=== PATIENT | male | born 1940 | race Caucasian/White ===

== ENCOUNTER 2019-04-07 19:03 | Emergency (ER) | payer OTHER ==
--- OUTSIDE RECORDS SUMMARY | 2019-04-07 19:05 | XMS REPORT | Summary of Care ---
:1940 Author Organization [facility] Address [address] [place] [address] Care Team Providers Name Role Phone Ashley Barraza MD Primary Care Provider Reason for Visit Reason Comments Refill Request Encounter Details Date Type Department Care Team Description 12/20/2018 Refill [facility] Pediatric and Armando Nogueira III, MD Refill Request Adult Primary Care- [address] [place] [address] Dr. Judd [address] , [place] [address] [facility] [phone] [place] [address] [phone] Allergies No Known Allergiesdocumented as of this encounter (statuses as of 12/22/2018) Medications Medication Sig Dispensed Refills Start Date End Date Status Pantoprazole 40 mg Take 40 mg by 90 Each 3 02/25/2018 Active delayed-release mouth daily. suspensionIndicati ons: Bipolar 1 disorder, depressed, moderate, Type 2 diabetes mellitus without complication, without long-term current use of insulin atorvastatin 40 mg Take 1 tablet 90 tablet 3 05/07/2018 Active tabletIndications: by mouth at Type 2 diabetes bedtime. mellitus without complication, without long-term current use of insulin PROPRANOLOL 20 mg TAKE 1 TABLET 180 tablet 3 09/21/2018 Active tabletIndications: TWICE DAILY Bipolar 1 disorder, depressed, moderate VENLAFAXINE XR 150 TAKE 1 CAPSULE 90 capsule 3 09/21/2018 Active mg 24 hr EVERY DAY WITH capsuleIndications BREAKFAST : Bipolar 1 disorder, depressed, moderate VENLAFAXINE XR TAKE 1 CAPSULE 90 capsule 3 09/21/2018 Active 37.5 mg 24 hr EVERY DAY WITH capsuleIndications BREAKFAST : Bipolar 1 disorder, depressed, moderate lancets-blood 1 Each 2 (two) 180 Each 3 09/30/2018 Active glucose strips 30 times daily. DX gauge Cmpk E11.9 (Brand upon insurance approval) QUETIAPINE 100 mg TAKE 1 TABLET 90 tablet 3 12/22/2018 Active tabletIndications: EVERY DAY AT Bipolar 1 BEDTIME disorder, depressed, moderate METFORMIN ER 500 TAKE 2 TABLETS 360 tablet 1 12/20/2018 Active mg 24 hr IN THE MORNING tabletIndications: AND TAKE 2 Type 2 diabetes TABLETS IN THE mellitus without EVENING complication, without long-term current use of insulin Lancing Device Check blood 1 Kit 0 12/20/2018 Active with Lancets sugar BID. (ACCU-CHEK SOFT E11.9 DEV LANCETS) KitIndications: Type 2 diabetes mellitus without complication, without long-term current use of insulin GLIMEPIRIDE 4 mg TAKE 1 TABLET 180 tablet 3 12/22/2018 Active tabletIndications: TWICE DAILY Type 2 diabetes mellitus without complication, without long-term current use of insulin CLONAZEPAM 0.5 mg TAKE 1 TABLET 60 tablet 2 12/22/2018 Active tabletIndications: TWICE DAILY Bipolar 1 disorder, depressed, moderate LISINOPRIL 10 mg TAKE 1 TABLET 90 tablet 3 12/22/2018 Active tabletIndications: EVERY DAY Type 2 diabetes mellitus without complication, without long-term current use of insulin QUEtiapine 100 mg Take 1 tablet 90 tablet 3 01/15/2018 Discontinued tabletIndications: by mouth daily. 9 Bipolar 1 At hs disorder, depressed, moderate glimepiride 4 mg Take 1 tablet 180 tablet 3 03/03/2018 Discontinued tabletIndications: by mouth 2 9 Type 2 diabetes (two) times mellitus without daily. complication, without long-term current use of insulin lisinopril 10 mg Take 1 tablet 90 tablet 3 05/07/2018 Discontinued tabletIndications: by mouth daily. 9 Type 2 diabetes mellitus without complication, without long-term current use of insulin CLONAZEPAM 0.5 mg TAKE 1 TABLET 60 tablet 2 10/08/2018 Discontinued tabletIndications: TWICE DAILY 9 Bipolar 1 disorder, depressed, moderate documented as of this encounter (statuses as of 12/22/2018) Active Problems Problem Noted Date Bipolar 1 disorder, depressed, moderate 01/15/2018 Type 2 diabetes mellitus without complication, without long-term current 01/15 use of insulin documented as of this encounter (statuses as of 12/22/2018) Immunizations Name Administration Dates Next Due Influenza High Dose 02/03/2018 documented as of this encounter Social History Tobacco Use Types Packs/Day Years Used Date Never Smoker Smokeless Tobacco: Never Used Alcohol Use Drinks/Week oz/Week Comments No Sex Assigned at Date Recorded Not on file Job Start Date Occupation Industry Not on file Not on file Not on file Travel History Travel Start Travel End No recent travel history available. documented as of this encounter Last Filed Vital Signs Not on filedocumented in this encounter Plan of Treatment Health Maintenance Due Date Last Done Comments HgA1C 1943 CREATININE (SERUM) 02/01/1952 EYE EXAM 02/01/1952 LDL-C 02/01/1952 URINE MICROALBUMIN 02/01/1952 FOOT EXAM 02/01/1960 DTaP,Tdap,and Td Vaccines (1 - 1961 Tdap) Zoster Recombinant Vaccine 02/01/1992 (SHINGRIX) (1 of 2) Medicare Wellness Visit 2007 PNEUMOCOCCAL VACCINES 65+ (1 of 2 2007 - PCV13) INFLUENZA VACCINE (#1) 2018 02/03/2018, 01/24/2014, 01/12/2013, Additional history exists documented as of this encounter Results Not on filedocumented in this encounter Visit Diagnoses Diagnosis Bipolar 1 disorder, depressed, moderate Bipolar I disorder, most recent episode (or current) depressed, moderate Type 2 diabetes mellitus without complication, without long-term current use of insulin documented in this encounter Insurance Payer Benefit Plan / Subscriber ID Effective Dates Phone Address Type Group HUMANA - HUMANA [id number] 2017-Presen Medicare Adv MANAGED MEDICARE t FFS MEDICARE documented as of this encounter
--- OUTSIDE RECORDS SUMMARY | 2019-04-07 19:05 | XMS REPORT | Summary of Care ---
:1940 Author Organization [facility] Address [address] [place] [id number] Care Team Providers Name Role Phone Ashley Barraza MD Primary Care Provider Reason for Visit Reason Comments Refill Request Encounter Details Date Type Department Care Team Description 12/20/2018 Refill [facility] Pediatric and Ashley Barraza, Refill Request Adult Primary Care- MD Judd [address] [place] [address], [address] [place] [address] [place] [phone] Allergies No Known Allergiesdocumented as of this encounter (statuses as of 12/20/2018) Medications Medication Sig Dispensed Refills Start Date End Date Status QUEtiapine 100 mg Take 1 tablet 90 tablet 3 01/15/2018 Active tabletIndications: by mouth daily. Bipolar 1 At hs disorder, depressed, moderate Pantoprazole 40 mg Take 40 mg by 90 Each 3 02/25/2018 Active delayed-release mouth daily. suspensionIndicati ons: Bipolar 1 disorder, depressed, moderate, Type 2 diabetes mellitus without complication, without long-term current use of insulin glimepiride 4 mg Take 1 tablet 180 tablet 3 03/03/2018 Active tabletIndications: by mouth 2 Type 2 diabetes (two) times mellitus without daily. complication, without long-term current use of insulin lisinopril 10 mg Take 1 tablet 90 tablet 3 05/07/2018 Active tabletIndications: by mouth daily. Type 2 diabetes mellitus without complication, without [...] gauge Cmpk E11.9 (Brand upon insurance approval) CLONAZEPAM 0.5 mg TAKE 1 TABLET 60 tablet 2 10/08/2018 Active tabletIndications: TWICE DAILY Bipolar 1 disorder, depressed, moderate METFORMIN ER 500 TAKE [...] complication, without long-term current use of insulin metformin ER 500 Take 2 tablets 360 tablet 3 05/19/2018 Discontinued mg 24 hr by mouth 2 9 tabletIndications: (two) times Type 2 diabetes daily. mellitus without complication, without long-term current use of insulin metFORMIN 500 mg Take 1 tablet 180 tablet 3 05/24/2018 Discontinued tablet by mouth 2 9 (two) times daily. documented as of this encounter (statuses as of 12/20/2018) Active Problems Problem Noted Date Bipolar 1 disorder, depressed, moderate 01/15/2018 Type 2 diabetes mellitus without complication, without long-term current 01/15 use of insulin documented as of this encounter (statuses as of 12/20/2018) Immunizations Name Administration Dates Next Due Influenza [...] filedocumented in this encounter Visit Diagnoses Diagnosis Type 2 diabetes mellitus without complication, without long-term current use of insulin documented in this encounter Insurance Payer Benefit Plan / Subscriber ID Effective Dates Phone Address Type Group HUMANA - HUMANA [id number] 2017-Presen Medicare Adv MANAGED MEDICARE t S MEDICARE documented as of this encounter
--- OUTSIDE RECORDS SUMMARY | 2019-04-07 19:05 | XMS REPORT ---
:1940 Author Organization [facility] Address [address] [place] [address] Care Team Providers Name Role Phone Unavailable Unavailable Unavailable Payers Payer Name Policy Type Policy Number Effective Date Expiration Date Problems This patient has no known problems. Allergies, Adverse Reactions, Alerts Allergy Allergy Status Severity Reaction(s) Onset Inactive Treating Comments Name Type Date Date Clinician No Known DA Active U 2018-11 00:00:0 0 latex DA Active SV 2018-11 00:00:0 0 Medications This patient has no known medications. Results Test Description Test Time Test Comments Text Results Atomic Results Result Comments GLUBED 2019-03-30 20:41:00 Test Item Value Reference Range Comments GLUBED (test code=GLUBED) 190 MG/DL 70-110 Performed by certified nitrate operator at [facility] [id number] 20:09:00 Test Item Value Reference Range Comments GLUBED (test code=GLUBED) 165 MG/DL 70-110 Performed by certified nitrate operator at [facility] [id number] 17:18:00 Test Item Value Reference Range Comments GLUBED (test code=GLUBED) 76 MG/DL 70-110 Performed by certified nitrate operator at [facility] [id number] 14:09:00 Test Item Value Reference Range Comments GLUBED (test code=GLUBED) 92 MG/DL 70-110 Performed by certified nitrate operator at [facility] BASIC METABOLIC [id number] 14:36:00 Test Item Value Reference Range Comments SODIUM (test code=NA) 140 mEq/L 134-147 POTASSIUM (test code=K) 4.6 mEq/L 3.4-5.0 CHLORIDE (test code=CL) 106 mEq/L 100-108 CARBON DIOXIDE (test code=CO2) 31 mEq/L 21-33 ANION GAP (test code=GAP) 8 0-20 GLUCOSE (test code=GLU) 150 mg/dL 70-110 BLOOD UREA NITROGEN (test 24 mg/dL 7-18 code=BUN) GLOMERULAR FILTRATION RATE 42.1 70-80 Units of measure=ml/min/1.73 (test code=GFR) m2 CREATININE (test code=CREAT) 1.6 mg/dL 0.6-1.3 CALCIUM (test code=CA) 10.0 mg/dL 8.0-10.5 BASIC METABOLIC [id number] 14:35:00 Test Item Value Reference Range Comments SODIUM (test code=NA) 140 mEq/L 134-147 POTASSIUM (test code=K) 4.6 mEq/L 3.4-5.0 CHLORIDE (test code=CL) 106 mEq/L 100-108 CARBON DIOXIDE (test code=CO2) 31 mEq/L 21-33 ANION GAP (test code=GAP) 8 0-20 GLUCOSE (test code=GLU) 150 mg/dL 70-110 BLOOD UREA NITROGEN (test code=BUN) 24 mg/dL 7-18 GLOMERULAR FILTRATION RATE (test code=GFR) 70-80 CREATININE (test code=CREAT) mg/dL 0.6-1.3 CALCIUM (test code=CA) 10.0 mg/dL 8.0-10.5 URINALYSIS [id number] 14:33:00 Test Item Value Reference Range Comments UA COLOR (test code=COLU) YELLOW YEL/STRAW UA APPEARANCE (test code=APPU) CLEAR CLEAR UA GLUCOSE DIPSTICK (test code=DGLUU) 3+ NEGATIVE UA BILIRUBIN DIPSTICK (test code=BILU) NEGATIVE NEGATIVE UA KETONE DIPSTICK (test code=KETU) NEGATIVE NEGATIVE UA SPECIFIC GRAVITY (test code=SGU) 1.009 1.005-1.030 UA BLOOD DIPSTICK (test code=QUENTIN) NEGATIVE NEGATIVE UA PH DIPSTICK (test code=JAY JAY) 6.0 5.0-7.0 UA PROTEIN DIPSTICK (test code=PROU) NEGATIVE NEGATIVE UA UROBILINIOGEN DIPSTICK (test code=URO) 0.2 mg/dL 0.2-1.0 UA NITRITE DIPSTICK (test code=CHRISS) NEGATIVE NEGATIVE UA LEUKOCYTE ESTERASE DIPSTICK (test NEGATIVE NEGATIVE code=LEUU) UA RBC (test code=RBCU) 0-3 RBC/HPF 0-3 UA WBC NO REFLEX (test code=WBCUCL) 0-3 WBC/HPF 0-3 UA BACTERIA (test code=BACU) NONE SEEN /HPF NONE SEEN UA SQUAMOUS CELLS (test code=SQU) NONE SEEN /HPF NONE SEEN CBC W/AUTO [id number] 14:23:00 Test Item Value Reference Range Comments WHITE BLOOD CELL (test code=WBC) 9.11 x10 3/uL 4.5-11.0 RED BLOOD CELL (test code=RBC) 4.13 x10 6/uL 4.00-5.60 HEMOGLOBIN (test code=HGB) 12.5 g/dL 12.5-16.9 HEMATOCRIT (test code=HCT) 39.3 % 37.5-50.7 MEAN CELL VOLUME (test code=MCV) 95.2 fL 81.0-99.0 MEAN CELL HGB (test code=MCH) 30.3 pg 27.0-33.0 MEAN CELL HGB CONCETRATION (test code=MCHC) 31.8 g/dL 33.0-37.0 RED CELL DISTRIBUTION WIDTH CV (test code=RDW) 12.7 % 11.5-14.5 RED CELL DISTRIBUTION WIDTH SD (test 43.9 fL 37.0-54.0 code=RDW-SD) PLATELET COUNT (test code=PLT) 241 x10 3/uL 150-400 MEAN PLATELET VOLUME (test code=MPV) 9.9 fL 7.0-9.0 NEUTROPHIL % (test code=NT%) 44.9 % 56.0-77.0 IMMATURE GRANULOCYTE % (test code=IG%) 0.2 % 0.0-2.0 LYMPHOCYTE % (test code=LY%) 41.2 % 14.0-32.0 MONOCYTE % (test code=MO%) 9.0 % 4.8-9.0 EOSINOPHIL % (test code=EO%) 3.6 % 0.3-3.7 BASOPHIL % (test code=BA%) 1.1 % 0.0-2.0 NUCLEATED RBC % (test code=NRBC%) 0.0 % 0-0 NEUTROPHIL # (test code=NT#) 4.09 x10 3/uL 2.0-7.6 IMMATURE GRANULOCYTE # (test code=IG#) 0.02 x10 3/uL 0.00-0.03 LYMPHOCYTE # (test code=LY#) 3.75 x10 3/uL 1.0-3.8 MONOCYTE # (test code=MO#) 0.82 x10 3/uL 0.1-0.8 EOSINOPHIL # (test code=EO#) 0.33 x10 3/uL 0.0-0.2 BASOPHIL # (test code=BA#) 0.10 x10 3/uL 0.0-0.2 NUCLEATED RBC # (test code=NRBC#) 0.00 x10 3/uL 0.0-0.1 MANUAL DIFF REQUIRED (test code=MDIFF) NO - NM BONE WHOLE [id number] 17:37:00 FAX: Peng Mccarthy MD [phone] [place]: St: REG Name: RINA RODAS [facility] : 1940 Age/S: 79/M [address] [place] [address] Blvd Unit#: [id number] Loc: [place] [address] Phys: Peng Levy MD Acct: [id number] Dis Date: Status: REG CLI PHONE #: [phone] Exam Date: 02/01/2019 1555 FAX #: [phone] Reason: PROSTATE CANCER. EXAMS: CPT CODE: [id number] NM BONE WHOLE BODY 85412 Patient: RINA RODAS. : 1940; Age: 79 years; Gender: Male. MR: [id number]. Ordering physician: Peng Levy MD. WHOLE-BODY NUCLEAR MEDICINE BONE SCAN: HISTORY: Prostate carcinoma. COMPARISON: CT abdomen and pelvis performed earlier today. FINDINGS: After the intravenous administration of 25 mCi of technetium 99m HDP, whole body scintigraphic imaging was performed. [place] focus of increased radiotracer activity noted involving posterior left 10thrib, which corresponds to a subtle area of increased osseous density on the CT examination, suspicious for focus of bone island. Symmetric foci of increased radiotracer activity noted in the region of bilateral 1st carpometacarpal joints compatible with osteoarthritic uptake. Mild increase osteoarthritic uptake also noted involving the right acromioclavicular joint. No additional focus of abnormal radiotracer uptake. No evidence diffuse osteoblastic metastatic disease. Renal uptake is symmetric and normal in appearance. IMPRESSION: 1. No evidence of diffuse osteoblastic metastatic disease. [place] focus of increased radiotracer activity involving posterior left 10th rib, which corresponds to a subtle area of increased osseous density on the CT examination, suspicious forfocus of bone island. 2. Osteoarthritic radiotracer uptake as described. SL: SL-H at 1737 Reported and signed by : Lit Cruz M.D. PAGE 1 Signed Report (CONTINUED) FAX: Peng Mccarthy MD [phone] [place]: St : REG ---- Name: CLARK,RINA [facility] : 1940 Age/S: 79/M [address] [place] [address] Unit #: [id number] Loc: [place] [address] Phys: Peng Levy MD Acct: [id number] Dis Date: Status: REG CLI PHONE #: [phone] Exam Date: 02/01/2019 1555 FAX #: [phone] Reason: PROSTATE CANCER. EXAMS: CPT CODE: [id number] NM BONE WHOLE BODY 23618 <Continued> CC: Peng Levy MD Technologist: WILLA Greenwood (N)(CT); ... Trnscrd Date/Time/By: 02/01/2019 (1865) : By: [email or web address] Orig Print D /T: S: 02/01/2019 (8444) PAGE 2 Signed Report- CT ABD PELVIS W/[id number] 15:51:00 Name: RINA RODAS [facility] : 1940 Age/S: 79 / M [address] [place], [place] [address]vd Unit #: [id number] Loc: [place] [id number] Phys: Peng Levy MD Acct: [id number] Dis Date: Status: REG CLI PHONE #: [phone] Exam Date: 02/01/2019 1242 FAX #: [phone] Reason: PROSTATE CANCER. Report Has Been Amended EXAMS: CPT CODE: [id number] CT ABD PELVIS W/CONT 82242 Addendum - 02/01/2019 SIGNED 02/01/2019 ADDENDUM: [id number] CT/CTABPLW ADDENDUM: Fat-containing right inguinal hernia. at 1551 Reported and signed by:Chioma Ward M.D. Report Clinical Indication: Prostate cancer. Comparison: None TECHNIQUE: Contiguous axial CT images of the abdomen and pelvis were acquired following administration of 100 mL Isovue-300 IV contrast. Oral contrast was administered. Coronal and sagittal reconstructions were obtained. CT imaging performed at this location utilizes radiationdose optimization techniques which include one or more of the following: - Automated exposure control -Adjustment of the mA and/or kV according to patient size -Use of iterative reconstruction technique CT Radiation Dose DLP 366 mGy-cm FINDINGS: Lung bases are clear. Visualized cardiac apex is unremarkable. Liver, gallbladder, spleen, pancreas, and adrenal glands are unremarkable. Cortical atrophy and scarring of the kidneys. Few low-density renal cysts. Mild nonspecific perinephric stranding. Stomach is distended. Small bowel is unremarkable. Appendix is not clearly identified. No right lower quadrant inflammatory changes. Large colonic stool burden. Moderate calcific atherosclerosis of the abdominal aorta without PAGE 1 Signed Report (CONTINUED) Name: RINA RODAS : 1940 Age/S: 79 / M [address] [place], [place] [address]vd Unit #: [id number] Loc: [place] [address] Phys: Peng Levy MD Acct: [id number] Dis Date: Status: REG CLI PHONE #: [phone] Exam Date: 02/01/20191241 FAX #: [phone] Reason: PROSTATE CANCER. Report Has Been Amended EXAMS: CPT CODE: [id number] CT ABD PELVIS W/ CONT 83106 <Continued> aneurysm.No lymphadenopathy. Urinary bladder is unremarkable. Prostate is enlarged. Degenerative changes of the spine. 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 IMPRESSION: 1. Prostatomegaly. 2. Bilateral renal cortical atrophy and scarring. 3. 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 SL: [id number] Electronically Signed by Laura Ward on 02/01 at 1543 Reported and signed by: Chioma Ward M.D. CC: Peng Levy MD Technologist:RT Raffy(R)(CT) CTDI: DLP: Trnscb Date/Time: 02/01/2019 (1543) [email or web address] Orig Print D/T: S : 02/01/2019 (1547) PAGE 2 Signed Report- CT ABD PELVIS [id number] 15:43:00 Name: RINA RODAS : 1940 Age/S: 79 / M [address] [place], [place] [address]vd Unit #: [id number] Loc: [place], [place] Phys: Peng Levy MD Acct: [id number] Dis Date: Status: REG CLI PHONE #: [phone] Exam Date: 02/01/2019 1242 FAX #: [phone] Reason: PROSTATE CANCER. EXAMS: CPTCODE: [id number] CT ABD PELVIS W/CONT 82767 Clinical Indication: Prostate cancer. Comparison: None TECHNIQUE: Contiguous axial CT images of the abdomen and pelvis were acquired following administration of 100 mL Isovue-300 IV contrast. Oral contrast was administered. Coronal and sagittal reconstructions were obtained. CT imaging performed at this location utilizes radiation dose optimization techniques which include one or more of the following: -Automated exposure control - Adjustmentof the mA and/or kV according to patient size -Use of iterative reconstruction techniqueCT Radiation Dose DLP 366 mGy-cm FINDINGS : Lung bases are clear. Visualized cardiac apex is unremarkable. Liver, gallbladder, spleen, pancreas, and adrenal glands are unremarkable. Cortical atrophy and scarring of the kidneys. Few low-density renal cysts. Mild nonspecific perinephric stranding. Stomach is distended. Small bowelis unremarkable. Appendix is not clearly identified. No right lower quadrant inflammatory changes. Large colonic stool burden. Moderate calcific atherosclerosis of the abdominal aorta without aneurysm. No lymphadenopathy. Urinary bladder is unremarkable. Prostate is enlarged. Degenerative changes of the spine. Bilateral L5 spondylolysis with grade 1spondylolisthesis of L5 on S1. IMPRESSION: 1. Prostatomegaly. 2. Bilateral renal cortical atrophy and scarring. 3. 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 SL: [id number] at 1543 Reported and signed by: Chioma Ward M.D. PAGE 1 Signed Report (CONTINUED) Name: RINA RODAS [facility] : 1940 Age/ S: 79 / M [address] [place] [address] Blvd Unit #: [id number] Loc: [place] [address] Phys: Peng Levy MD Acct: [id number] Dis Date: Status: REG CLI PHONE #: [phone] Exam Date: 02/01/2019 1242 FAX #: [phone] Reason: PROSTATE CANCER. EXAMS: CPT CODE: [id number] CT ABD PELVIS W/CONT 10412 <Continued> CC: Peng Levy MD Technologist:RT Raffy(R)(CT) CTDI: DLP: Trnscb Date/Time: 02/01/2019 (3285) [email or web address] Orig Print D/T: S : 02/01/2019 (9934) PAGE 2 Signed ReportCREATININE W ESTIMATED [id number] 14:22:00 Test Item Value Reference Range Comments BEDSIDE CREATININE (test code=CREATBED) 1.4 MG/DL 0.6-1.3 GLOMERULAR FILTRATION RATE POC (test code=GFRBED) 52 ML/MIN ENTER BEDSIDE CREATININE RESULT: 1.35Serial Number: [id number] Name of User Performing Test: PACOSTASURGICAL [id number] 08:38:00 RUN DATE: 12/21/18 [facility] *LIVE* PAGE 1 RUN TIME: 837 Specimen Inquiry RUN USER: INTERFACE PATIENT : RINA RODAS LOC: [place] U #: [id number] AGE/SX: 78/M ROOM: RE12/16/18REG DR: Peng Levy MD : 44 BED: DIS: STATUS: [facility] TLOC: SPEC #: [id number] RECD: 12/16/18 STATUS: ALVIN SHAY #: [id number] SHAUNA: 12/16/[address] [facility] [address]: Peng Levy MD ENTERED: 12/21/18 SP TYPE: SURG SPEC OT DR: ORDERED: GM LEVEL 4 CODES: [id number] - PROSTATE, NOS PROCEDURES: GM LEVEL 4 ( Incomplete) TISSUES: 1. PROSTATE, NOS - Prostate, left lateral, bx. 2. PROSTATE, NOS - Prostate, left mid, bx. 3. PROSTATE, NOS - Prostate, left apex, bx. 4. PROSTATE, NOS - Prostate,right lateral, bx. 5. PROSTATE, NOS - Prostate, right mid, bx. 6. PROSTATE, NOS - Prostate, right apex, bx. FINAL DIAGNOSIS Prostate, left lateral and mid, bx.: Prostatic adenocarcinoma, [place] score 9 (4 + 5) , involving lateral 2/2 cores 75% of the tissue volume, mid 3/3 cores 60% tissue volume. Prostate, left apex, bx.: Prostatic adenocarcinoma, [place] score 7 (4 + 3), involving 2/2 cores 80% tissue volume. Prostate, right lateral and mid, bx.: Prostatic adenocarcinoma, [place] score 9 (4 + 5), involving lateral 2/2 cores 60% tissue volume, mid 3/3 cores 80% tissue volume. Prostate, right apex, bx.: Prostatic adenocarcinoma, [place] score 7 (4 + 3), involving 1/2 cores, 60% tissue volume. GROSS AND MICROSCOPIC GROSSEXAMINATION: Received in formalin labeled right lateral prostate are 2 howard tissue cores measuringup to 1.3 cm ( A). Received in formalin labeled right mid prostate are 3 howard tissue cores measuringup to 1.4 cm (B). Received in formalin labeled right apex prostate are 2 howard tissue cores measuring up to 1.6 cm (C). Received in formalin labeled left lateral prostate are 2 howard tissue cores measuring up to 1 cm (D). Received in formalin labeled left mid prostate are 3 howard tissue cores measuring up to 1.3 cm (E). Received in formalin labeled left apex prostate are 2 howard tissue cores measuring up to 0.5 cm (F). CONTINUED ON NEXT PAGE RUN DATE: 12/21/18 [facility] *LIVE* PAGE 2 RUN TIME: 837 Specimen Inquiry RUN USER: INTERFACE --SPEC #: [id number] PATIENT: RINA RODAS # [id number] (Continued) GROSSAND MICROSCOPIC ( Continued) MICROSCOPIC EXAMINATION: Sections of the left and right prostate tissue reveal an atypical proliferation of epithelial cells infiltrating into fibrousstroma forming small glandular units and some areas showing single cell infiltration. The atypical cell infiltrates show variable weak to strong staining for p504s and lack a basal layer with p63 staining on each of the 6 specimens. (When special stains have been reviewed, theappropriate positive/negative controls have been reviewed and are appropriately positive/negative). The P504s/p63 combination immunostain was developed and its performance characteristics determined by [facility]. It has not been cleared or approved by the USFood and Drug Administration. POST-OP DIAGNOSIS Elevated PSA PRE-OP DIAGNOSIS Elevated PSA REVIEWED BY: KATHERYN Signed SIGNATURE ON Adeel Treadwell Keisha OLMEDO 12/21/18 0838 END OF REPORT [id number] 15:03:00 Test Item Value Reference Range Comments GLUBED (test code=GLUBED) 144 MG/DL 70-110 Performed by certified nitrate operator at [facility] [id number] 13:43:00 Test Item Value Reference Range Comments GLUBED (test code=GLUBED) 110 MG/DL 70-110 Performed by certified nitrate operator at [facility] URINALYSIS [id number] 16:35:00 Test Item Value Reference Range Comments UA COLOR (test code=COLU) STRAW YEL/STRAW UA APPEARANCE (test code=APPU) CLEAR CLEAR UA GLUCOSE DIPSTICK (test code=DGLUU) 3+ NEGATIVE UA BILIRUBIN DIPSTICK (test code=BILU) NEGATIVE NEGATIVE UA KETONE DIPSTICK (test code=KETU) NEGATIVE NEGATIVE UA SPECIFIC GRAVITY (test code=SGU) 1.008 1.005-1.030 UA BLOOD DIPSTICK (test code=QUENTIN) NEGATIVE NEGATIVE UA PH DIPSTICK (test code=JAY JAY) 6.0 5.0-7.0 UA PROTEIN DIPSTICK (test code=PROU) NEGATIVE NEGATIVE UA UROBILINIOGEN DIPSTICK (test code=URO) 0.2 mg/dL 0.2-1.0 UA NITRITE DIPSTICK (test code=CHRISS) NEGATIVE NEGATIVE UA LEUKOCYTE ESTERASE DIPSTICK (test NEGATIVE NEGATIVE code=LEUU) UA RBC (test code=RBCU) 0-3 RBC/HPF 0-3 UA WBC NO REFLEX (test code=WBCUCL) 0-3 WBC/HPF 0-3 UA BACTERIA (test code=BACU) NONE SEEN /HPF NONE SEEN UA SQUAMOUS CELLS (test code=SQU) NONE SEEN /HPF NONE SEEN UA MUCUS (test code=MUCU) TRACE /LPF NONE SEEN BASIC METABOLIC [id number] 16:22:00 Test Item Value Reference Range Comments SODIUM (test code=NA) 137 mEq/L 134-147 POTASSIUM (test code=K) 4.3 mEq/L 3.4-5.0 CHLORIDE (test code=CL) 102 mEq/L 100-108 CARBON DIOXIDE (test code=CO2) 32 mEq/L 21-33 ANION GAP (test code=GAP) 7 0-20 GLUCOSE (test code=GLU) 216 mg/dL 70-110 BLOOD UREA NITROGEN (test 26 mg/dL 7-18 code=BUN) GLOMERULAR FILTRATION RATE 45.5 70-80 Units of measure=ml/min/1.73 (test code=GFR) m2 CREATININE (test code=CREAT) 1.5 mg/dL 0.6-1.3 CALCIUM (test code=CA) 9.9 mg/dL 8.0-10.5 CBC W/AUTO [id number] 16:20:00 Test Item Value Reference Range Comments WHITE BLOOD CELL (test code=WBC) 8.25 x10 3/uL 4.5-11.0 RED BLOOD CELL (test code=RBC) 4.18 x10 6/uL 4.00-5.60 HEMOGLOBIN (test code=HGB) 12.4 g/dL 12.5-16.9 HEMATOCRIT (test code=HCT) 38.9 % 37.5-50.7 MEAN CELL VOLUME (test code=MCV) 93.1 fL 81.0-99.0 MEAN CELL HGB (test code=MCH) 29.7 pg 27.0-33.0 MEAN CELL HGB CONCETRATION (test code=MCHC) 31.9 g/dL 33.0-37.0 RED CELL DISTRIBUTION WIDTH CV (test code=RDW) 12.7 % 11.5-14.5 RED CELL DISTRIBUTION WIDTH SD (test 43.7 fL 37.0-54.0 code=RDW-SD) PLATELET COUNT (test code=PLT) 219 x10 3/uL 150-400 MEAN PLATELET VOLUME (test code=MPV) 10.2 fL 7.0-9.0 NEUTROPHIL % (test code=NT%) 53.3 % 56.0-77.0 IMMATURE GRANULOCYTE % (test code=IG%) 0.5 % 0.0-2.0 LYMPHOCYTE % (test code=LY%) 31.8 % 14.0-32.0 MONOCYTE % (test code=MO%) 10.2 % 4.8-9.0 EOSINOPHIL % (test code=EO%) 3.6 % 0.3-3.7 BASOPHIL % (test code=BA%) 0.6 % 0.0-2.0 NUCLEATED RBC % (test code=NRBC%) 0.0 % 0-0 NEUTROPHIL # (test code=NT#) 4.40 x10 3/uL 2.0-7.6 IMMATURE GRANULOCYTE # (test code=IG#) 0.04 x10 3/uL 0.00-0.03 LYMPHOCYTE # (test code=LY#) 2.62 x10 3/uL 1.0-3.8 MONOCYTE # (test code=MO#) 0.84 x10 3/uL 0.1-0.8 EOSINOPHIL # (test code=EO#) 0.30 x10 3/uL 0.0-0.2 BASOPHIL # (test code=BA#) 0.05 x10 3/uL 0.0-0.2 NUCLEATED RBC # (test code=NRBC#) 0.00 x10 3/uL 0.0-0.1 MANUAL DIFF REQUIRED (test code=MDIFF) NO - XR CHEST 2 [id number] 15:31:00 FAX: Peng Mccarthy MD [place]: [address] St: PRE Name: RINA RODAS [facility] : 1940 Age/S: 78/[place] [address] [place] [address] Blvd Unit#: [id number] Loc: [place] [address] Phys: Peng Levy MD Acct: [id number] Dis Date: Status: PRE SDC PHONE #: [phone] Exam Date: 12/10/2018 153 FAX #: [phone] Reason: PRE-OP CYSTO EXAMS: CPT CODE: [id number] XR CHEST 2 V 04469 2 view chest x- ray performed December 10, 2018 1621 hours. COMPARISON: none. CLINICAL HISTORY: PRE-OP CYSTO. DISCUSSION:2 views/ films of the chest are submitted. Elevation of the left hemidiaphragm with linear atelectasis or scarring at the base. Lungs are clear bilaterally. Cardiomediastinal silhouette is normal in size. Atherosclerotic vascular calcifications are present. Osseous structures demonstrate degenerative change.. IMPRESSION: No acute cardiopulmonary findings at 1531 Reported and signed by: Amanda Quinones M.D. CC: Peng Levy MD Technologist: RT Anastasiya(R) Trnscrd Date/Time/By: 12/10/2018 (1531) : By: Be Orig Print D/T: S: 12/10/2018 (8914) PAGE 1 Signed Report
[2019-04-07] MEDS ORDERED: LIDOCAINE VISCOUS 2% SOLN 15 ML UDC ONE (19:31)
[2019-04-07] MEDS ORDERED: ONDANSETRON 4 MG/2 ML VIAL ONE (19:52)
[2019-04-07] MEDS ORDERED: MORPHINE 4 MG/ML SYR ONE (19:52)
[2019-04-07 20:42] LABS: Urine Blood 2+ (NEG); Urine Glucose TRACE (NEG); Urine Protein 1+ (NEG)
[2019-04-07 21:15] LABS: Urine Bacteria <20 /HPF (NONE SEEN); Urine Culture Reflex Order NOT NEEDED; Urine Mucus 1+ /HPF (NONE SEEN)
--- NOTE | 2019-04-07 21:30 | ER ---
Nurse's Notes [facility] Name: Jose R Oswald Age: 79 yrs Sex: Male : 1940 Arrival Date: 04/07/2019 Time: 19:12 Bed 4 Private MD: Diagnosis: Retention of urine, unspecified Presentation: 04/07 19:10 Presenting complaint: EMS states: complaints of unable to pass urine. increasing pain rr5 on the lower quadrant area. patient had a laser procedure to widen the urethra last Thursday. Jarvis catheter removed last Thursday his last full stream was Thursday. 19:10 Transition of care: patient was not received from another setting of care. Onset of rr5 symptoms was April 04, 2019. Risk Assessment: Do you want to hurt yourself or someone else? Patient reports no desire to harm self or others. Initial Sepsis Screen: Does the patient meet any 2 criteria? No. Patient's initial sepsis screen is negative. Does the patient have a suspected source of infection? No. Patient's initial sepsis screen is negative. Care prior to arrival: None. 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 - Social history:: Smoking status: Patient/guardian denies using tobacco, Patient/guardian denies using alcohol, street drugs. - Ebola Screening: : Patient negative for fever greater than or equal to 101.5 degrees Fahrenheit, and additional compatible Ebola Virus Disease symptoms Patient denies exposure to infectious person Patient denies travel to an Ebola-affected area in the 21 days before illness onset. Screenin:00 Abuse screen: Denies threats or abuse. Denies injuries from another. Nutritional rr5 screening: No deficits noted. Tuberculosis screening: No symptoms or risk factors identified. Fall Risk IV access (20 points). Total Cameron Fall Scale indicates No Risk (0-24 pts). Assessment: 19:10 General: Appears in no apparent distress. uncomfortable, Behavior is calm, cooperative, rr5 appropriate for age. Pain: Complains of pain in pelvis Pain does not radiate. Pain currently is 4 out of 10 on a pain scale. Quality of pain is described as aching, Pain began gradually, Is intermittent. Neuro: Level of Consciousness is awake, alert, obeys commands, Oriented to person, place, time, situation, Appropriate for age. Cardiovascular: Capillary refill < 3 seconds Patient's skin is warm and dry. Respiratory: Airway is patent Respiratory effort is even, unlabored, Respiratory pattern is regular, symmetrical. GI: No signs and/or symptoms were reported involving the gastrointestinal system. : Urine is clear, orange Reports inability to void, pain in suprapubic area Pain is 4 out of 10 on a pain scale. EENT: No signs and/or symptoms were reported regarding the EENT system. Derm: Skin is intact, is healthy with good turgor, Skin temperature is warm. Musculoskeletal: Circulation, motion, and sensation intact. Capillary refill < 3 seconds. 20:00 Reassessment: Patient appears in no apparent distress at this time. No changes from rr5 previously documented assessment. 21:00 Reassessment: Patient appears in no apparent distress at this time. Patient is alert, rr5 oriented x 3, equal unlabored respirations, skin warm/dry/pink. awaiting for urine result. Patient denies pain at this time. 21:50 Reassessment: Patient appears in no apparent distress at this time. Patient is alert, rr5 oriented x 3, equal unlabored respirations, skin warm/dry/pink. discharge instruction given and explained without complaints made, verbalized understaidng. Patient states feeling better. Vital Signs: 19:10 BP 156 / 81; Pulse 61; Resp 19; Temp 97.5; Pulse Ox 96% ; Weight 83.46 kg; Height 5 ft. rr5 10 in. (177.80 cm); Pain 4/10; 20:30 BP 147 / 80; Pulse 69; Resp 17; Pulse Ox 99% on R/A; rr5 21:50 BP 121 / 70; Pulse 63; Resp 17; Temp 98.2; Pulse Ox 100% ; rr5 19:10 Body Mass Index 26.40 (83.46 kg, 177.80 cm) rr5 ED Course: 19:10 Arm band placed on. rr5 19:12 Patient arrived in ED. rr5 19:15 Patient has correct armband on for positive identification. Placed in gown. Bed in low rr5 position. Call light in reach. Pulse ox on. NIBP on. 19:16 Krzysztof Das MD is Attending Physician. tw4 19:17 Triage completed. rr5 19:30 Inserted saline lock: 18 gauge in left antecubital area, using aseptic technique. rr5 ,using aseptic technique. by maintenance technician 2nd shift ez Blood collected. 20:25 Bladder scan completed. 448 ml. rr5 20:29 Korey Hernández, ANILA is Primary Nurse. rr5 20:30 Jarvis cath inserted, using sterile technique, 16 Fr., by mo, balloon inflated, to rr5 gravity drainage, urine specimen collected. Patient tolerated well. 20:34 Urine Microscopic Only Sent. ds4 20:34 Urine Culture Sent. ds4 20:34 Urine Dipstick--Ancillary (enter results) Sent. ds4 21:50 No provider procedures requiring assistance completed. IV discontinued, intact, rr5 bleeding controlled, No redness/swelling at site. Pressure dressing applied. Administered Medications: 20:13 Drug: Zofran 4 mg Route: IVP; Site: left antecubital; rr5 21:00 Follow up: Response: No adverse reaction rr5 20:15 Drug: morphine 4 mg {Note: rass 0. .} Route: IVP; Site: left antecubital; rr5 21:15 Follow up: Response: No adverse reaction; RASS: Alert and Calm (0) rr5 Output: 21:56 Urine: 1000ml (Jarvis); Total: 1000ml. jd3 Outcome: 21:29 Discharge ordered by . tw4 21:50 Discharged to home via wheelchair, with family. rr5 21:50 Condition: stable 21:50 Discharge instructions given to patient, family, Instructed on discharge instructions, follow up and referral plans. Jarvis catheter care Demonstrated understanding of instructions, follow-up care, jarvis catheter care 21:56 Patient left the ED. jd3 Signatures: Ez Mace ds4 Jose Luis Dick RN RN jd3 Krzysztof Das MD MD tw4 Korey Hernández RN RN rr5 Corrections: (The following items were deleted from the chart) 23:04 20:30 Reassessment: Patient appears in no apparent distress at this time. Patient is rr5 alert, oriented x 3, equal unlabored respirations, skin warm/dry/pink. awaiting for urine result. Patient denies pain at this time. rr5
--- NOTE | 2019-04-07 21:31 | EDPHYS ---
Physician Documentation [facility] Name: Jose R Oswald Age: 79 yrs Sex: Male : 1940 Arrival Date: 04/07/2019 Time: 19:12 Bed 4 Private MD: ED Physician Krzysztof Das HPI: 04/07 21:43 This 79 yrs old Male presents to ER via EMS with complaints of unable to tw4 urinate. 21:43 The patient presents with urinary symptoms, unable to void. Onset: The symptoms/episode tw4 began/occurred yesterday. Modifying factors: The symptoms are alleviated by nothing, the symptoms are aggravated by nothing. Associated signs and symptoms: The patient has no apparent associated signs or symptoms. Severity of symptoms: At their worst the symptoms were moderate, in the emergency department the symptoms are unchanged. The patient has not experienced similar symptoms in the past. The patient has been recently seen by a physician: the patient's primary care provider, 2 week(s) ago. 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 - Social history:: Smoking status: Patient/guardian denies using tobacco, Patient/guardian denies using alcohol, street drugs. - Ebola Screening: : Patient negative for fever greater than or equal to 101.5 degrees Fahrenheit, and additional compatible Ebola Virus Disease symptoms Patient denies exposure to infectious person Patient denies travel to an Ebola-affected area in the 21 days before illness onset. ROS: 21:46 Constitutional: Negative for fever, chills, and weight loss, Eyes: Negative for injury, tw4 pain, redness, and discharge, Cardiovascular: Negative for chest pain, palpitations, and edema, Respiratory: Negative for shortness of breath, cough, wheezing, and pleuritic chest pain, Abdomen/GI: Negative for abdominal pain, nausea, vomiting, diarrhea, and constipation, MS/Extremity: Negative for injury and deformity, Skin: Negative for injury, rash, and discoloration, Neuro: Negative for headache, weakness, numbness, tingling, and seizure. 21:46 : Positive for small amounts, difficulty urinating, Negative for injury or acute deformity, urinary symptoms, penile pain, testicular pain Exam: 21:46 Constitutional: This is a well developed, well nourished patient who is awake, alert, tw4 and in no acute distress. Head/Face: Normocephalic, atraumatic. Chest/axilla: Normal chest wall appearance and motion. Nontender with no deformity. No lesions are appreciated. Cardiovascular: Regular rate and rhythm with a normal S1 and S2. No gallops, murmurs, or rubs. Normal PMI, no JVD. No pulse deficits. Respiratory: Lungs have equal breath sounds bilaterally, clear to auscultation and percussion. No rales, rhonchi or wheezes noted. No increased work of breathing, no retractions or nasal flaring. 21:46 Back: No spinal tenderness. No costovertebral tenderness. Full range of motion. MS/ Extremity: Pulses equal, no cyanosis. Neurovascular intact. Full, normal range of motion. Neuro: Awake and alert, GCS 15, oriented to person, place, time, and situation. Cranial nerves II-XII grossly intact. Motor strength 5/5 in all extremities. Sensory grossly intact. Cerebellar exam normal. Normal gait. 21:46 Abdomen/GI: Inspection: abdomen appears normal, Bowel sounds: diminished, Palpation: mild abdominal tenderness, in the suprapubic area. Vital Signs: 19:10 BP 156 / 81; Pulse 61; Resp 19; Temp 97.5; Pulse Ox 96% ; Weight 83.46 kg; Height 5 ft. rr5 10 in. (177.80 cm); Pain 4/10; 20:30 BP 147 / 80; Pulse 69; Resp 17; Pulse Ox 99% on R/A; rr5 21:50 BP 121 / 70; Pulse 63; Resp 17; Temp 98.2; Pulse Ox 100% ; rr5 19:10 Body Mass Index 26.40 (83.46 kg, 177.80 cm) rr5 MDM: 19:17 Patient medically screened. tw4 21:48 Data reviewed: vital signs, nurses notes. Counseling: I had a detailed discussion with 4 the patient and/or guardian regarding: the historical points, exam findings, and any diagnostic results supporting the discharge/admit diagnosis. ED course: Jarvis catheter placed with return of 800 cc of clear urine. Pt instructed to followup with PCP. 04/07 19:35 Order name: Glucose, Ancillary Testing EDNM 04/07 20:34 Order name: Urine Microscopic Only; Complete Time: 21:24 4 04/07 21:24 Interpretation: Normal except: UWBC 5-10; URBC 10-20. tw4 04/07 20:34 Order name: Urine Culture 4 04/07 20:34 Order name: Urine Dipstick--Ancillary (enter results) [facility] 04/07 20:30 Order name: Jarvis; Complete Time: 20:32 rr5 04/07 20:31 Order name: Bladder Scanner; Complete Time: 20:32 rr5 04/07 20:33 Order name: Misc. Order: viscous lidocaine 5ml use the gel for inserting jarvis rr5 catheter; Complete Time: 20:34 Administered Medications: 20:13 Drug: Zofran 4 mg Route: IVP; Site: left antecubital; rr5 21:00 Follow up: Response: No adverse reaction rr5 20:15 Drug: morphine 4 mg {Note: rass 0. .} Route: IVP; Site: left antecubital; rr5 21:15 Follow up: Response: No adverse reaction; RASS: Alert and Calm (0) rr5 Disposition: 04/07/19 21:29 Discharged to Home. Impression: Retention of urine, unspecified. - Condition is Stable. - Discharge Instructions: Jarvis Catheter Care, Adult, Acute Urinary Retention, Male. - Medication Reconciliation Form, Thank You Letter, Antibiotic Education, Prescription Opioid Use form. - Follow up: Private Physician; When: Upon discharge from the Emergency Department; Reason: Recheck today's complaints, Continuance of care. - Problem is new. - Symptoms have improved. Signatures: Dispatcher [employer] Jose Luis De Luna RN RN jd3 Krzysztof Das MD MD tw4 Korey Hernández RN RN rr5 Corrections: (The following items were deleted from the chart) 21:56 21:29 04/07/2019 21:29 Discharged to Home. Impression: Retention of urine, unspecified. jd3 Condition is Stable. Forms are Medication Reconciliation Form, Thank You Letter, Antibiotic Education, Prescription Opioid Use. Follow up: Private Physician; When: Upon discharge from the Emergency Department; Reason: Recheck today's complaints, Continuance of care. Problem is new. Symptoms have improved. tw4
[2019-04-07 22:36] VITALS: BP 156/81; TEMP 97.5; O2SAT 96
== END 2019-04-07 21:56 | disposition home or self-care (01) ==
LOC: ER 19:03
DX: R33.9 Retention of urine, unspecified (principal); Z91.040 Latex allergy status; E11.9 Type 2 diabetes mellitus without complications; Z85.46 Personal history of malignant neoplasm of prostate
CPT/HCPCS: 87088; 87086; 82947; 51702; 96375; 96374; 99284; J2405; 81003; 81015

== ENCOUNTER 2020-08-27 13:21 | Emergency (ER) | payer OTHER ==
--- OUTSIDE RECORDS SUMMARY | 2020-08-27 13:24 | XMS REPORT | Continuity of Care Document ---
:1940 Author Organization [facility] t Address [address] [place] [address] Care Team Providers Name Role Phone Madi MARI, Karina Attending Clinician Diane Nogueira MD Attending Clinician Payers Payer Name Policy Type Policy Number Effective Date Expiration Date S ource Problems This patient has no known problems. Allergies, Adverse Reactions, Alerts Allergy Allergy Status Severity Reaction(s) Onset Inactive Treating Comm ents Source Name Type Date Date Clinician No Known DA Active U 2018-0 [facility] Allergie -16 Clear s 00:00: Rodney 00 [facility] latex DA Active SV 2018-0 [facility] 8-16 Clear 00:00: Rodney 00 [facility] Medications Ordered Filled Start Stop Current Ordering Indication Dosage Frequency Signature Comments Components Source Medication Medication Date Date Medication? Clinician (SIG) Name Name Levothyroxi Levothyroxi Yes Dre [address] [facility] ne Sodium ne Sodium [facility] in the Sarah kes - morning on [facility] an empty l [facility] Lisinopril Lisinopril Yes Dre [address] [facility] Quetiapine Quetiapine Yes Dre [address] [facility] Fumarate Fumarate [facility] at bedtime [facility] Vitamin D Vitamin D Yes Dre [address] [facility] Zinc Zinc Yes Dre [address] [facility] Propranolol Propranolol Yes Dre [address] [facility] HCl HCl [facility] MetFORMIN MetFORMIN Yes Dre [address] [facility] HCl ER HCl ER Curran [facility] Pantoprazol Pantoprazol Yes Dre [address] [facility] e Sodium e Sodium Curran [facility] Clonazepam Clonazepam Yes Dre [address] [facility] Centrum Centrum Yes Dre as [facility] Silver Silver [facility] directed [facility] Mucinex Mucinex Yes Dre [address] [facility] as needed [facility] Venlafaxine Venlafaxine Yes Dre [address] [facility] HCl ER HCl ER [facility] with food [facility] Procedures This patient has no known procedures. Encounters Start End Encounter Admission Attending Care Care Encounter Source Date/Time Date/Time Type Type Clinicians Facility Department ID 2020-07-04 2020-07-[address] [facility] [id number] [facility] 2020-06-27 2020-06-[address] [facility] [id number] [facility] 2020-06-26 2020-06-[address] [facility] [id number] [facility] 2020-06-11 2020-06-11 Refill CONRADO Barraza [id number] 00:00:00 00:00:00 Ashley Judd [id number] Lilibeth [id number] Roslyn [phone] [address] 2020-05-30 2020-05-30 Outpatient [facility] [id number] [facility] 2020-05-25 2020-05-25 Out[facility] [id number] [facility] 2020-05-11 2020-05-11 Outpatient [facility] [id number] [facility] 2020-05-11 2020-05-11 Outpatient [facility] [id number] [facility] 2020-05-09 2020-05-09 Outpatient [facility] [id number] [facility] 2020-05-09 2020-05-09 Out[facility] [id number] [facility] 2020-04-24 2020-04-24 Outpatient [facility] [id number] [facility] 2020-03-30 2020-03-30 Outpatient [facility] [id number] [facility] 2020-03-29 2020-03-29 Outpatient [facility] [id number] [facility] 2020-03-16 2020-03-16 Outpatient [facility] [id number] [facility] 2019-12-15 2019-12-15 [facility] [id number] [address] 15:30:00 15:30:00 [place] [facility] 2019-12-15 2019-12-15 [facility] [id number] 15:15:00 15:15:00 [place] [facility] 2019-11-29 2019-11-29 Outpatient Neto Duquet [id number] 12:01:00 12:01:00 [place] [facility] 2019-11-23 2019-11-23 Outpatient Neto Duqeut [id number] 11:41:00 11:41:00 [facility] [place] [facility] 2018-12-20 2018-12-20 Refjumana Barraza [facility] [id number] 00:00:00 00:00:00 Ashley Judd [id number] [place] 4.2.7.2.686 Professio [phone] nal [address] [place] [address] 2018-12-20 2018-12-20 Armando Temple [facility] [id number] 00:00:00 00:00:00 Diane Judd 350.1.13.10 [place] 4.2.7.2.[phone] n[address] [place] [address] Results Test Description Test Time Test Comments Results Result Comments Source GLUBED 2019-03-30 20:41:00 Test Item Value Reference Range Interpretation Comme nts GLUBED (test code = GLUBED) 190 MG/DL 70-110 H Performed by certified crawler dragline operator at [facility] [id number] 20:09:00 Test Item Value Reference Range Interpretation Comments GLUBED (test code = 165 MG/DL 70-110 H Performe d by certified GLUBED) crawler dragline operator at [facility] [id number] 17:18:00 Test Item Value Reference Range Interpretation Comments GLUBED (test code = 76 MG/DL 70-110 N Performe d by certified GLUBED) crawler dragline operator at [facility] [id number] 14:09:00 Test Item Value Reference Range Interpretation Comments GLUBED (test code = 92 MG/DL 70-110 N Performe d by certified GLUBED) crawler dragline operator at [facility] BASIC METABOLIC [id number] 14:36:00 Test Item Value Reference Range Interpretation Comments SODIUM (test code = NA) 140 mEq/L 134-147 N POTASSIUM (test code = 4.6 mEq/L 3.4-5.0 N K) CHLORIDE (test code = 106 mEq/L 100-108 N CL) CARBON DIOXIDE (test 31 mEq/L 21-33 N code = CO2) ANION GAP (test code = 8 0-20 N GAP) GLUCOSE (test code = 150 mg/dL 70-110 H GLU) BLOOD UREA NITROGEN 24 mg/dL 7-18 H (test code = BUN) GLOMERULAR FILTRATION 42.1 70-80 L Units of measure = RATE (test code = GFR) ml/mi n/1.73 m2 CREATININE (test code = 1.6 mg/dL 0.6-1.3 H CREAT) CALCIUM (test code = 10.0 mg/dL 8.0-10.5 N CA) BASIC METABOLIC [id number] 14:35:00 Test Item Value Reference Range Interpretation Comments SODIUM (test code = NA) 140 mEq/L 134-147 N POTASSIUM (test code = K) 4.6 mEq/L 3.4-5.0 N CHLORIDE (test code = CL) 106 mEq/L 100-108 N CARBON DIOXIDE (test code = CO2) 31 mEq/L 21-33 N ANION GAP (test code = GAP) 8 0-20 N GLUCOSE (test code = GLU) 150 mg/dL 70-110 H BLOOD UREA NITROGEN (test code = 24 mg/dL 7-18 H BUN) GLOMERULAR FILTRATION RATE (test 70-80 code = GFR) CREATININE (test code = CREAT) mg/dL 0.6-1.3 CALCIUM (test code = CA) 10.0 mg/dL 8.0-10.5 N URINALYSIS [id number] 14:33:00 Test Item Value Reference Range Interpretation Comments UA COLOR (test code = COLU) YELLOW YEL/STRAW UA APPEARANCE (test code = CLEAR CLEAR APPU) UA GLUCOSE DIPSTICK (test code 3+ NEGATIVE A = DGLUU) UA BILIRUBIN DIPSTICK (test NEGATIVE NEGATIVE code = BILU) UA KETONE DIPSTICK (test code NEGATIVE NEGATIVE = KETU) UA SPECIFIC GRAVITY (test code 1.009 1.005-1.030 N = SGU) UA BLOOD DIPSTICK (test code = NEGATIVE NEGATIVE QUENTIN) UA PH DIPSTICK (test code = 6.0 5.0-7.0 N JAY JAY) UA PROTEIN DIPSTICK (test code NEGATIVE NEGATIVE = PROU) UA UROBILINIOGEN DIPSTICK 0.2 mg/dL 0.2-1.0 (test code = URO) UA NITRITE DIPSTICK (test code NEGATIVE NEGATIVE = CHRISS) UA LEUKOCYTE ESTERASE DIPSTICK NEGATIVE NEGATIVE (test code = LEUU) UA RBC (test code = RBCU) 0-3 RBC/HPF 0-3 UA WBC NO REFLEX (test code = 0-3 WBC/HPF 0-3 WBCUCL) UA BACTERIA (test code = BACU) NONE SEEN /HPF NONE SEEN UA SQUAMOUS CELLS (test code = NONE SEEN /HPF NONE SEEN SQU) CBC W/AUTO [id number] 14:23:00 Test Item Value Reference Range Interpretation Comments WHITE BLOOD CELL (test code = 9.11 x10 3/uL 4.5-11.0 N WBC) RED BLOOD CELL (test code = 4.13 x10 6/uL 4.00-5.60 N RBC) HEMOGLOBIN (test code = HGB) 12.5 g/dL 12.5-16.9 N HEMATOCRIT (test code = HCT) 39.3 % 37.5-50.7 N MEAN CELL VOLUME (test code = 95.2 fL 81.0-99.0 N MCV) MEAN CELL HGB (test code = MCH) 30.3 pg 27.0-33.0 N MEAN CELL HGB CONCETRATION 31.8 g/dL 33.0-37.0 L (test code = MCHC) RED CELL DISTRIBUTION WIDTH CV 12.7 % 11.5-14.5 N (test code = RDW) RED CELL DISTRIBUTION WIDTH SD 43.9 fL 37.0-54.0 N (test code = RDW-SD) PLATELET COUNT (test code = 241 x10 3/uL 150-400 N PLT) MEAN PLATELET VOLUME (test code 9.9 fL 7.0-9.0 H = MPV) NEUTROPHIL % (test code = NT%) 44.9 % 56.0-77.0 L IMMATURE GRANULOCYTE % (test 0.2 % 0.0-2.0 N code = IG%) LYMPHOCYTE % (test code = LY%) 41.2 % 14.0-32.0 H MONOCYTE % (test code = MO%) 9.0 % 4.8-9.0 N EOSINOPHIL % (test code = EO%) 3.6 % 0.3-3.7 N BASOPHIL % (test code = BA%) 1.1 % 0.0-2.0 N NUCLEATED RBC % (test code = 0.0 % 0-0 N NRBC%) NEUTROPHIL # (test code = NT#) 4.09 x10 3/uL 2.0-7.6 N IMMATURE GRANULOCYTE # (test 0.02 x10 3/uL 0.00-0.03 N code = IG#) LYMPHOCYTE # (test code = LY#) 3.75 x10 3/uL 1.0-3.8 N MONOCYTE # (test code = MO#) 0.82 x10 3/uL 0.1-0.8 H EOSINOPHIL # (test code = EO#) 0.33 x10 3/uL 0.0-0.2 H BASOPHIL # (test code = BA#) 0.10 x10 3/uL 0.0-0.2 N NUCLEATED RBC # (test code = 0.00 x10 3/uL 0.0-0.1 N NRBC#) MANUAL DIFF REQUIRED (test code NO = MDIFF) - NM BONE WHOLE [id number] 17:37:00 FAX: Peng Mccarthy MD [phone] [place]: St: REG Name: RINA RODAS [facility] : 1940 Age/S: 79/M [address] [place] [address] Blvd Unit#: [id number] Loc: [place] [address] Phys: Peng Levy MD Acct: [id number] Dis Date: Status: REG CL I PHONE #: [phone] Exam Date: 02/01/2019 1555 FAX #: [phone] Reason: PROSTATE CANCER. EXAMS: CPT CODE: [id number] NM BONE WHOLE BODY 69280 Patient: RINA RODAS. : 1940; Age: 79 years; Gender: Male. MR: [id number]. Ordering physician: Peng Levy MD. WHOLE-BODY NUCLEAR MEDICINE BONE SCAN: HISTORY: Prostate carcinoma. COMPARISON: CT abdomen and pelvis performed earlier today. FINDINGS: After the intravenous administration of 25 mCi of technetium 99m HDP, whole body scintigraphic imaging was performed. [place] focus of increased radiotracer activity noted involving [...] No evidence of diffuse osteoblastic metastatic disease. [place] focus of increased radiotracer activity involving posterior left 10th rib, which corresponds to a subtle area of increased osseous density on the CT examination, suspicious forfocus of bone island. 2. Osteoarthritic radiotracer uptake as described. SL: ROMÁN at 1737 Reported and signed by: Lit Cruz M.D. PAGE 1 Signed Report (CONTINUED) FAX: Peng Mccarthy MD [phone] [place]: St: REG-- Name: RINA RODAS [facility] : 1940 Age/S: 79/M [address] [place] [address] Unit #: [id number] Loc: [place] [address] Phys: Peng Levy MD Acct: [id number] Dis Date: Status: REG CLI PHONE #: [phone] Exam Date: 02/01/2019 1555 FAX #: [phone] Reason: PROSTATE CANCER. EXAMS: CPT CODE: [id number] NM BONE WHOLE BODY 00009 <Continued> CC: Peng Levy MD Technologist: WILLA Greenwood (N)(CT); ... Trnscrd Date/Time/By: 02/01/2019 (5824) : By: [email or web address] Orig Print D/T: S: 02/01/2019 (4879) PAGE 2 Signed Report- CT ABD PELVIS [id number] 15:51:00 Name: RINA RODAS [facility] : 1940 Age/S: 79 / M [address] [place] [address] Blvd Unit #: [id number] Loc: [place], [place] Phys: Peng Levy MD Acct: [id number] Dis Date: Status: REG CLI PHONE #: [phone] Exam Date: 02/01/2019 1242 FAX #: [phone] Reason: PROSTATE CANCER. Report Has Been Amended EXAMS: CPT CODE: [id number] CT ABD PELVIS W/CONT 42326 Addendum - 02/01/2019 SIGNED 02/01/2019 ADDENDUM: [id number] CT/CTABPLW ADDENDUM: Fat-containing right inguinal hernia. at [...] of the following: -Automated exposure control - Adjustment of the mA and/or kV according to patient size -Use of iterative reconstruction technique CT Radiation Dose DLP 366 mGy-cm FINDINGS: Lung bases are clear. Visualized cardiac apex is unremarkable. Liver, gallbladder, spleen, pancreas, and adrenal glands are unremarkable. Cortical atrophy and scarring of the kidneys. Few low- density renal cysts. Mild nonspecific perinephric stranding. Stomach is distended. Small bowel is unremarkable. Appendix is not clearly identified. No right lower quadrant inflammatory changes. Large colonic stool burden. Moderate calcific atherosclerosis of the abdominal aorta without PAGE 1 Signed Report (CONTINUED) Name: RINA RODAS [facility] : 1940 Age/S: 79 / M [address] [place] [address] Unit #: [id number] Loc: [place] [address] Phys: Peng Levy MD Acct: [id number] Dis Date: Status: REG CLI PHONE #: [phone] Exam Date: 02/01/2019 1242 FAX #: [phone] Reason: PROSTATE CANCER. Report Has Been Amended EXAMS: CPT CODE: [id number] CT ABD PELVIS W/CONT 51482 <Continued> aneurysm.No lymphadenopathy. Urinary bladder is unremarkable. Prostate is enlarged. Degenerative changes of the spine. 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 IMPRESSION: 1. Prostatomegaly. 2. Bilateral renal cortical atrophy and scarring. 3. 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 SL: [id number] at 1543 Reported and sign ed by: Chioma Ward M.D. CC: Peng Levy MD Technologist:RT Raffy(R)(CT) CTDI: DLP: Trnscb Date/Time: 02/01/2019 (1543) [email or web address] Orig Print D/T: S: 02/01/2019 (1547) PAGE 2 Signed Report- CT ABD PELVIS [id number] 15:43:00 Name: RINA RODAS [facility] : 1940 Age/S: 79 / M [address] [place] [address] Unit #: [id number] Loc: [place] Phys: Peng Levy MD Acct: [id number] Dis Date: Status: REG CLI PHONE #: [phone] Exam Date: 02/01/20191241 FAX #: [phone] Reason: PROSTATE CANCER. EXAMS: CPTCODE: [id number] CT ABD PELVIS W/CONT 51024 Clinical Indication: Prostate cancer. Comparison: None TECHNIQUE: Contiguous axial CT images of the abdomen and pelvis were acquired following administration of 100 mL Isovue-300 IV contrast. Oral contrast was administered. Coronal and sagittal reconstructions were obtained. CT imaging performed at this location utilizes radiation dose optimization techniques which include one or more of the following: -Automated exposure control -Adjustmentof the mA and/or kV according to patient size -Use of iterative reconstruction techniqueCT Radiation Dose DLP 366 mGy-cm FINDINGS: Lung [...] 1 spondylolisthesis of L5 on S1. SL: [id number] at 1543 Reported and signed by: Chioma Ward M.D. PAGE 1 Signed Report (CONTINUED) Name: RINA RODAS : 1940 Age/S: 79 / M [address] [place] [address] Unit #: [id number] Loc: [place] [address] Phys: Peng Levy MD Acct: [id number] Dis Date: Status: REG CLI PHONE #: [phone] Exam Date: 02/01/2019 1240 FAX #: [phone] Reason: PROSTATE CANCER. EXAMS: CPT CODE: [id number] CT ABD PELVIS W/CONT 25707 <Continued> CC: Peng Levy MD Technologist:RT Raffy(R)(CT) CTDI: DLP: Trnscb Date/Time: 02/01/2019 (7827) [email or web address] Orig Print D/T: S: 02/01/2019 (4973) PAGE 2 Signed ReportCREATININE W ESTIMATED [id number] 14:22:00 Test Item Value Reference Range Interpretation Comments BEDSIDE CREATININE (test code = 1.4 MG/DL 0.6-1.3 H CREATBED) GLOMERULAR FILTRATION RATE POC 52 ML/MIN (test code = GFRBED) ENTER BEDSIDE CREATININE RESULT: 1.35Serial Number: [id number] Name of User Performing Test: PACOSTASURGICAL [id number] 08:38:00 RUN DATE: 12/21/18 [facility] *LIVE* PAGE 1 RUN TIME: 08 Specimen Inquiry RUN USER: INTERFACE PATIENT: RINA RODAS LOC: [place] U #: [id number] AGE/SX: 78/M ROOM: RE12/16/18REG DR: Peng Levy MD : 44 BED: DIS: STATUS: DEP [facility] TLOC: SPEC #: [id number] RECD: 12/16/18 STATUS: ALISHAEileen LAURITA #: [id number] SHAUNA: 12/16/18 [facility] DR: Peng Levy MD ENTERED: 12/21/18 SP TYPE: SURG SPEC OTHR DR: ORDERED: GM LEVEL 4 CODES: [id number] - PROSTATE, NOS PROCEDURES: GM LEVEL 4 (Incomplete) TISSUES: 1. PROSTATE, NOS - Prostate, left lateral, bx. 2. PROSTATE, NOS - Prostate, left mid, bx. 3. PROSTATE, NOS - Prostate, left apex, bx. 4. PROSTATE, NOS - Prostate,right lateral, bx. 5. PROSTATE, NOS - Prostate, right mid, bx. 6. PROSTATE, NOS - Prostate, right apex, bx. FINAL DIAGNOSIS Prostate, left lateral and mid, bx.: Prostatic adenocarcinoma, Fazal score 9 (4 + 5), involving lateral 2/2 cores 75% of the tissue volume, mid 3/3 cores 60% tissue volume. Prostate, left apex, bx.: Prostatic adenocarcinoma, Fazal score 7 (4 + 3), involving 2/2 cores 80% tissue volume. Prostate, right lateral and mid, bx .: Prostatic adenocarcinoma, Fazal score 9 (4 + 5), involving lateral 2/2 cores 60% tissue volume, mid 3/3 cores 80% tissue volume. Prostate, right apex, bx.: Prostatic adenocarcinoma, Arona score 7 (4 + 3), involving 1/2 cores, 60% tissue volume. GROSS AND MICROSCOPIC GROSSEXAMINATION: Received in formalin labeled right lateral prostate are 2 howard tissue cores measuringup to 1.3 cm (A). Received in formalin labeled right mid prostate [...] CONTINUED ON NEXT PAGE RUN DATE: 12/21/18 [facility] *LIVE* PAGE 2 RUN TIME: 837 Specimen Inquiry RUN USER: INTERFACE SPEC #: [id number] PATIENT: RINA RODAS #[id number] (Continued)--- --------- GROSSAND MICROSCOPIC (Continued) MICROSCOPIC EXAMINATION: Sections of the left and right prostate tissue reveal an atypical proliferation of epithelial cells infiltrating into fibrous stroma forming small glandular units and some areas [...] developed and its performance characteristics determined by [facility]. It has not been cleared or approved by the USFood and Drug Administration. POST-OP DIAGNOSIS Elevated PSA PRE-OP DIAGNOSIS Elevated PSA REVIEWED BY: Signed SIGNATURE ON FILE EffieAdeel saldana DO 12/21/18 0838 END OF REPORT [id number] 15:03:00 Test Item Value Reference Range Interpretation Comments GLUBED (test code = 144 MG/DL 70-110 H Performe d by certified GLUBED) crawler dragline operator at [facility] [id number] 13:43:00 Test Item Value Reference Range Interpretation Comments GLUBED (test code = 110 MG/DL 70-110 N Performe d by certified GLUBED) crawler dragline operator at [facility] URINALYSIS [id number] 16:35:00 Test Item Value Reference Range Interpretation Comments UA COLOR (test code = COLU) STRAW YEL/STRAW UA APPEARANCE (test code = CLEAR CLEAR APPU) UA GLUCOSE DIPSTICK (test code 3+ NEGATIVE A = DGLUU) UA BILIRUBIN DIPSTICK (test NEGATIVE NEGATIVE code = BILU) UA KETONE DIPSTICK (test code NEGATIVE NEGATIVE = KETU) UA SPECIFIC GRAVITY (test code 1.008 1.005-1.030 N = SGU) UA BLOOD DIPSTICK (test code = NEGATIVE NEGATIVE QUENTIN) UA PH DIPSTICK (test code = 6.0 5.0-7.0 N JAY JAY) UA PROTEIN DIPSTICK (test code NEGATIVE NEGATIVE = PROU) UA UROBILINIOGEN DIPSTICK 0.2 mg/dL 0.2-1.0 (test code = URO) UA NITRITE DIPSTICK (test code NEGATIVE NEGATIVE = CHRISS) UA LEUKOCYTE ESTERASE DIPSTICK NEGATIVE NEGATIVE (test code = LEUU) UA RBC (test code = RBCU) 0-3 RBC/HPF 0-3 UA WBC NO REFLEX (test code = 0-3 WBC/HPF 0-3 WBCUCL) UA BACTERIA (test code = BACU) NONE SEEN /HPF NONE SEEN UA SQUAMOUS CELLS (test code = NONE SEEN /HPF NONE SEEN SQU) UA MUCUS (test code = MUCU) TRACE /LPF NONE SEEN BASIC METABOLIC [id number] 16:22:00 Test Item Value Reference Range Interpretation Comments SODIUM (test code = NA) 137 mEq/L 134-147 N POTASSIUM (test code = 4.3 mEq/L 3.4-5.0 N K) CHLORIDE (test code = 102 mEq/L 100-108 N CL) CARBON DIOXIDE (test 32 mEq/L 21-33 N code = CO2) ANION GAP (test code = 7 0-20 N GAP) GLUCOSE (test code = 216 mg/dL 70-110 H GLU) BLOOD UREA NITROGEN 26 mg/dL 7-18 H (test code = BUN) GLOMERULAR FILTRATION 45.5 70-80 L Units of measure = RATE (test code = GFR) ml/mi n/1.73 m2 CREATININE (test code = 1.5 mg/dL 0.6-1.3 H CREAT) CALCIUM (test code = 9.9 mg/dL 8.0-10.5 N CA) CBC W/AUTO [id number] 16:20:00 Test Item Value Reference Range Interpretation Comments WHITE BLOOD CELL (test code = 8.25 x10 3/uL 4.5-11.0 N WBC) RED BLOOD CELL (test code = 4.18 x10 6/uL 4.00-5.60 N RBC) HEMOGLOBIN (test code = HGB) 12.4 g/dL 12.5-16.9 L HEMATOCRIT (test code = HCT) 38.9 % 37.5-50.7 N MEAN CELL VOLUME (test code = 93.1 fL 81.0-99.0 N MCV) MEAN CELL HGB (test code = MCH) 29.7 pg 27.0-33.0 N MEAN CELL HGB CONCETRATION 31.9 g/dL 33.0-37.0 L (test code = MCHC) RED CELL DISTRIBUTION WIDTH CV 12.7 % 11.5-14.5 N (test code = RDW) RED CELL DISTRIBUTION WIDTH SD 43.7 fL 37.0-54.0 N (test code = RDW-SD) PLATELET COUNT (test code = 219 x10 3/uL 150-400 N PLT) MEAN PLATELET VOLUME (test code 10.2 fL 7.0-9.0 H = MPV) NEUTROPHIL % (test code = NT%) 53.3 % 56.0-77.0 L IMMATURE GRANULOCYTE % (test 0.5 % 0.0-2.0 N code = IG%) LYMPHOCYTE % (test code = LY%) 31.8 % 14.0-32.0 N MONOCYTE % (test code = MO%) 10.2 % 4.8-9.0 H EOSINOPHIL % (test code = EO%) 3.6 % 0.3-3.7 N BASOPHIL % (test code = BA%) 0.6 % 0.0-2.0 N NUCLEATED RBC % (test code = 0.0 % 0-0 N NRBC%) NEUTROPHIL # (test code = NT#) 4.40 x10 3/uL 2.0-7.6 N IMMATURE GRANULOCYTE # (test 0.04 x10 3/uL 0.00-0.03 H code = IG#) LYMPHOCYTE # (test code = LY#) 2.62 x10 3/uL 1.0-3.8 N MONOCYTE # (test code = MO#) 0.84 x10 3/uL 0.1-0.8 H EOSINOPHIL # (test code = EO#) 0.30 x10 3/uL 0.0-0.2 H BASOPHIL # (test code = BA#) 0.05 x10 3/uL 0.0-0.2 N NUCLEATED RBC # (test code = 0.00 x10 3/uL 0.0-0.1 N NRBC#) MANUAL DIFF REQUIRED (test code NO = MDIFF) - XR CHEST 2 [id number] 15:31:00 FAX: Peng Mccarthy MD [phone] [place]: St: PRE Name: RINA RODAS [facility] : 1940 Age/S: 78/M [address] [place] [address] Blvd Unit#: [id number] Loc: [place] [address] Phys: Peng Levy MD Acct: [id number] Dis Date: Status: PRE SD C PHONE #: [phone] Exam Date: 12/10/2018 1531 FAX #: [phone] Reason: PRE-OP CYSTO EXAMS: CPT CODE: [id number] XR CHEST 2 V [id number] 2 view chest x-ray performed December 10, 2018 1621 hours. COMPARISON: [...] Anastasiya(R) Trnscrd Date/Time/By: 12/10/2018 (1531) : By: FabioNMG Orig Print D/T: S: 12/10/2018 (8043) PAGE 1 Signed Report
[2020-08-27 16:15] LABS: Absolute Lymphocytes (CBC) 1.2 K/uL (0.7-4.9); Basophils % 1.3 % (0-1.3); Hematocrit 37.1 % (39.6-49.0); Lymphocytes % 17.7 % (15.3-44.8); MPV 8.2 fL (7.6-11.3); RBC Red Blood Cell Count 4.04 M/uL (4.33-5.43)
[2020-08-27 16:24] LABS: Protime INR 1.06
--- NOTE | 2020-08-27 16:26 | RAD REPORT ---
EXAM DESCRIPTION: CT - Head Brain Wo Cont - 08/27/2020 3:56 pm CLINICAL HISTORY: HEADACHE, altered mental status COMPARISON: No comparisons TECHNIQUE: Axial 5 mm thick images of the head were obtained without IV contrast. All CT scans are performed using dose optimization technique as appropriate and may include automated exposure control or mA/KV adjustment according to patient size. FINDINGS: No intracranial hemorrhage, mass, edema or shift of mid-line structures. No acute infarcti on changes seen. No abnormal extra-axial fluid collections. Atrophy and chronic ischemic changes are present relatively mild. Ventricles are in proportion. Mastoid air cells and visualized portions of the paranasal sinuses are clear. No acute bony findings. IMPRESSION: Negative non-contrast CT head examination for acute finding.
[2020-08-27 16:37] LABS: Urine Blood Negative (Negative); Urine Glucose 1+ (Negative); Urine Protein Negative (Negative); Urine pH 7.5 (5.0-7.0)
[2020-08-27 16:49] LABS: ALT/SGPT 36 U/L (12-78); AST/SGOT 21 U/L (15-37); Albumin 3.7 g/dL (3.4-5.0); Alkaline Phosphatase 76 U/L (45-117); BUN Blood Urea Nitrogen 25 mg/dL (7-18); Bicarbonate 29 mmol/L (21-32); Bilirubin Direct < 0.1 mg/dL (0-0.2); Bilirubin Total 0.2 mg/dL (0.2-1.0); Glucose Level 238 mg/dL (74-106); Potassium 4.7 mmol/L (3.5-5.1); Sodium Level 135 mmol/L (136-145)
[2020-08-27 16:51] LABS: Barbiturates NEGATIVE (NEGATIVE); Benzodiazepines NEGATIVE (NEGATIVE); Cocaine NEGATIVE (NEGATIVE); METHAMPHETAM NEGATIVE (NEGATIVE); Methadone NEGATIVE (NEGATIVE); Opiates NEGATIVE (NEGATIVE); Phencyclidine NEGATIVE (NEGATIVE); THC Cannibis NEGATIVE (NEGATIVE)
--- NOTE | 2020-08-27 17:17 | ER ---
Nurse's Notes [facility] Name: Jose R Oswald Age: 80 yrs Sex: Male : 1940 Arrival Date: 08/27/2020 Time: 13:22 Bed 23 Private MD: Diagnosis: Acute stress reaction Presentation: 08/27 14:03 Chief complaint: Patient's son or daughter states: woke up today with headache and em nausea, symptoms have resolved, they were told to come to the ER by Dr. Curran for a mental evaluation because dad has had episodes of aggression towards family, daughter states they were here to get labs and get a evaluation, pt denies SI/HI. Coronavirus screen: Client denies travel out of the [place] in the last 14 days. Ebola Screen: Patient negative for fever greater than or equal to 101.5 degrees Fahrenheit, and additional compatible Ebola Virus Disease symptoms Patient denies exposure to infectious person. Patient denies travel to an Ebola-affected area in the 21 days before illness onset. No symptoms or risks identified at this time. Initial Sepsis Screen: Does the patient meet any 2 criteria? No. Patient's initial sepsis screen is negative. Does the patient have a suspected source of infection? No. Patient's initial sepsis screen is negative. Risk Assessment: Do you want to hurt yourself or someone else? Patient reports no desire to harm self or others. Onset of symptoms was August 27, 2020. 14:03 Method Of Arrival: Ambulatory em 14:03 Acuity: [place] 3 em Triage Assessment: 17:32 Headache History: Denies prior headaches. General: Appears in no apparent distress. zb Pain: Also complains of. Pain: Denies pain. 17:32 Pain: Pain. 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 - Social history:: Smoking status: Patient denies any tobacco usage or history of. Screenin:33 Abuse screen: Denies threats or abuse. Denies injuries from another. Nutritional zb screening: No deficits noted. Tuberculosis screening: No symptoms or risk factors identified. Fall Risk None identified. Assessment: 14:33 Reassessment: ECP at bedside discussing care. zb 15:00 Reassessment: ECP at bedside. zb 15:22 Reassessment: ECP remains at bedside with patient and family at this time. zb 15:30 General: Appears in no apparent distress. comfortable, Behavior is calm, cooperative, zb appropriate for age. Pain: Denies pain. Neuro: Level of Consciousness is awake, alert, obeys commands, Oriented to person, place, time, situation. Cardiovascular: Capillary refill < 3 seconds Patient's skin is warm and dry. Respiratory: Airway is patent Respiratory effort is even, unlabored, Respiratory pattern is regular, symmetrical, Denies cough, shortness of breath labored breathing, pain with respiration, pain with cough, pain with movement. GI: Abdomen is flat. : Urine is clear. Derm: Skin is intact, is healthy with good turgor. Musculoskeletal: Circulation, motion, and sensation intact. Range of motion: intact in all extremities. 16:30 Reassessment: Patient appears in no apparent distress at this time. Patient and/or zb family updated on plan of care and expected duration. Pain level reassessed. Patient is alert, oriented x 3, equal unlabored respirations, skin warm/dry/pink. family remains at bedside. no changes at this time. 17:00 Reassessment: ECP at bedside. zb 17:08 Reassessment: Patient appears in no apparent distress at this time. Patient and/or zb family updated on plan of care and expected duration. Pain level reassessed. Patient is alert, oriented x 3, equal unlabored respirations, skin warm/dry/pink. no changes at this time. patient denies pain. 17:31 Reassessment: Patient appears in no apparent distress at this time. Patient and/or zb family updated on plan of care and expected duration. Pain level reassessed. Patient is alert, oriented x 3, equal unlabored respirations, skin warm/dry/pink. d/c no changes at this time. IV removed. patient ambulate out with family. Vital Signs: 14:03 BP 172 / 88; Pulse 71; Resp 18; Temp 98.1; Pulse Ox 100% on R/A; Weight 78.93 kg; em Height 5 ft. 11 in. (180.34 cm); Pain 0/10; 15:30 BP 168 / 80; Pulse 70; Resp 16; Pulse Ox 96% on R/A; zb 17:30 BP 167 / 84; Pulse 69; Resp 16; Pulse Ox 98% on R/A; zb 14:03 Body Mass Index 24.27 (78.93 kg, 180.34 cm) em ED Course: 13:22 Patient arrived in ED. ds1 14:15 Triage completed. em 14:16 Arm band placed on. em 14:20 Bernadette Ruth FNP-C is [facility]. kb 14:20 Radha Corrigan MD is Attending Physician. kb 14:33 Socorro Martinez, RN is Primary Nurse. zb 14:34 Patient has correct armband on for positive identification. Bed in low position. Call zb light in reach. Adult w/ patient. 15:30 Inserted saline lock: 20 gauge in left antecubital area, using aseptic technique. Blood zb collected. 15:56 CT Head Brain wo Cont In Process Unspecified. EDMS 17:00 EKG done, by ED staff, reviewed by Bernadette RUIZ. Initial lab(s) drawn, by ca, zb sent to lab. 17:31 No provider procedures requiring assistance completed. IV discontinued, intact, zb bleeding controlled, No redness/swelling at site. Pressure dressing applied. Administered Medications: No medications were administered Outcome: 17:16 Discharge ordered by MD. kb 17:32 Discharged to home ambulatory, with family. zb 17:32 Condition: stable 17:32 Discharge instructions given to patient, family, Instructed on discharge instructions, follow up and referral plans. Demonstrated understanding of instructions, follow-up care. 17:32 Patient left the ED. zb Signatures: Dispatcher [employer] EDN[facility] Bernadette Ruth FNP-C FNP-Luca Wen RN RN Oriana Powell ds Socorro Martinez, ANILA RN zb Corrections: (The following items were deleted from the chart) 17:14 17:06 BP 132 / 68; Pulse 57bpm; Resp 16bpm; Pulse Ox 96% RA; zb zb 17:14 16:00 BP 114 / 63; Pulse 65bpm; Resp 16bpm; Pulse Ox 96% RA; zb zb 17:14 15:00 BP 111 / 59; Pulse 64bpm; Resp 16bpm; Pulse Ox 96% RA; zb zb
--- NOTE | 2020-08-27 17:17 | EDPHYS ---
Physician Documentation [facility] Name: Jose R Oswald Age: 80 yrs Sex: Male : 1940 Arrival Date: 08/27/2020 Time: 13:22 Bed 23 Private MD: ED Physician Radha Corrigan HPI: 08/27 20:54 This 80 yrs old Male presents to ER via Ambulatory with complaints of kb Anxiety, Headache, Abdominal Pain. 20:54 The patient presents to the emergency department with anxiety, depression. Onset: The kb symptoms/episode began/occurred 7 month(s) ago. Associated signs and symptoms: Pertinent positives; anxiety, depression, Pertinent negatives: homicidal ideation, substance abuse, suicide ideation. Severity of symptoms: At their worst the symptoms were moderate in the emergency department the symptoms are unchanged. The patient has not experienced similar symptoms in the past. The patient has not recently seen a physician. Daughter states pt has been having increased anxiety, stress, and anger/irritation over the last 7 months. States she, pt, her and [id number] all live together and it has been causing strains on the family relationship because they do not get along. Daughter states pt doesn't like her and her cannot feel like the man of the house so it has been a struggle in the household. Pt states he does not get along with the son in law or his mother because they are rude to him and loud. Recently daughter and spouse decided to put the house on the market and everyone can live apart again because what they are doing isn't working. Pt is going to live with his sister in [place]. Daughter wants pt checked out medically before he goes. Pt states "I've been told I am crazy a few too many times so I would like to get some tests to make sure there is nothing going on." Daughter called Dr Curran's office about all of this and was told to come to the ER for a blood panel and mental evaluation. Pt denies homicidal or suicidal ideations. States he was raised on the Bible and would never do that. Pt is hopeful that everything will get better after he moves. Pt has a history of anxiety and depression that he takes medications for. Daughter states pt has been angry because he is unhappy and doesn't agree with how she lives her life and can't just be happy that she is happy. . 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 - Social history:: Smoking status: Patient denies any tobacco usage or history of. ROS: 20:53 Constitutional: Negative for fever, chills, and weight loss, Cardiovascular: Negative kb for chest pain, palpitations, and edema, Respiratory: Negative for shortness of breath, cough, wheezing, and pleuritic chest pain, Abdomen/GI: Negative for abdominal pain, nausea, vomiting, diarrhea, and constipation, : Negative for injury, bleeding, discharge, and swelling, MS/Extremity: Negative for injury and deformity, Skin: Negative for injury, rash, and discoloration, Neuro: Negative for headache, weakness, numbness, tingling, and seizure. 20:53 Psych: Positive for anxiety, depression, Negative for homicidal ideation, suicidal ideation. Exam: 20:53 Constitutional: This is a well developed, well nourished patient who is awake, alert, kb and in no acute distress. Head/Face: Normocephalic, atraumatic. Chest/axilla: Normal chest wall appearance and motion. Cardiovascular: Regular rate and rhythm with a normal S1 and S2. No gallops, murmurs, or rubs. No pulse deficits. Respiratory: Respirations even and unlabored. No increased work of breathing, no retractions or nasal flaring. Abdomen/GI: Soft, non-tender. No distention Skin: Warm, dry with normal turgor. Normal color. MS/ Extremity: Pulses equal, no cyanosis. Neurovascular intact. Full, normal range of motion. Neuro: Awake and alert, GCS 15, oriented to person, place, time, and situation. Moves all extremities. Normal gait. 20:53 Psych: Behavior/mood is pleasant, cooperative, Affect is calm, Oriented to person, place, time, Patient has no thoughts/intents to harm self or others. Judgement / Insight is normal. Memory is normal. Delusions/hallucinations are not present. Vital Signs: 14:03 BP 172 / 88; Pulse 71; Resp 18; Temp 98.1; Pulse Ox 100% on R/A; Weight 78.93 kg; em Height 5 ft. 11 in. (180.34 cm); Pain 0/10; 15:30 BP 168 / 80; Pulse 70; Resp 16; Pulse Ox 96% on R/A; zb 17:30 BP 167 / 84; Pulse 69; Resp 16; Pulse Ox 98% on R/A; zb 14:03 Body Mass Index 24.27 (78.93 kg, 180.34 cm) em MDM: 14:20 Patient medically screened. kb 20:52 Data reviewed: vital signs, nurses notes. Data interpreted: Pulse oximetry: on room air kb is 98 %. Interpretation: normal. Counseling: I had a detailed discussion with the patient and/or guardian regarding: the historical points, exam findings, and any diagnostic results supporting the discharge/admit diagnosis, lab results, radiology results, the need for outpatient follow up, a family practitioner, to return to the emergency department if symptoms worsen or persist or if there are any questions or concerns that arise at home. ED course: Recommended follow up with psych. Pt states he will set up visit when he moves to [place] to live with his sister. 21:02 ED course: Daughter requested a case hardener to speak with them. Case workers came down kb to ER and spoke to pt and daughter. They are in agreement that the plan they have set will be a good solution for their current situation. 08/27 15:26 Order name: Acetaminophen 08/27 15:26 Order name: Basic Metabolic Panel 08/27 15:26 Order name: CBC with Diff; Complete Time: 16:16 kb 08/27 15:26 Order name: ETOH Level; Complete Time: 16:38 kb 08/27 15:26 Order name: Hepatic Function; Complete Time: 16:57 kb 08/27 15:26 Order name: PT-INR; Complete Time: 16:36 kb 08/27 15:26 Order name: CT Head Brain wo Cont; Complete Time: 16:31 kb 08/27 15:26 Order name: Ptt, Activated; Complete Time: 16:36 kb 08/27 15:26 Order name: Salicylate; Complete Time: 16:36 kb 08/27 15:26 Order name: Urine Drug Screen; Complete Time: 16:57 kb 08/27 15:26 Order name: TSH; Complete Time: 16:57 kb 08/27 15:26 Order name: Acetaminophen Level; Complete Time: 16:57 EDMS 08/27 15:27 Order name: Basic Metabolic Panel; Complete Time: 16:57 EDMS 08/27 16:37 Order name: Urine Dipstick-Ancillary; Complete Time: 16:38 EDMS 08/27 15:26 Order name: EKG; Complete Time: 15:27 kb 08/27 15:26 Order name: EKG - Nurse/Tech; Complete Time: 17:02 kb 08/27 15:26 Order name: IV Saline Lock; Complete Time: 17:02 kb 08/27 15:26 Order name: Labs collected and sent; Complete Time: 17:02 kb 08/27 15:26 Order name: Urine Dipstick-Ancillary (obtain specimen); Complete Time: 17:02 kb Administered Medications: No medications were administered Disposition: 08/27/20 17:16 Discharged to Home. Impression: Acute stress reaction. - Condition is Stable. - Discharge Instructions: Stress and Stress Management, Panic Attacks, [id number]. - Medication Reconciliation Form, Thank You Letter, Antibiotic Education, Prescription Opioid Use form. - Follow up: Emergency Department; When: As needed; Reason: Worsening of condition. Follow up: Private Physician; When: 2 - 3 days; Reason: Recheck today's complaints, Continuance of care, Re-evaluation by your physician. Addendum: 08/30/2020 06:15 Co-signature as Attending Physician, Radha Corrigan MD. m a2 Signatures: Dispatcher [employer] Bernadette Leigh, DENICE-Diane WINDOWS MOBILE DEVELOPER-Luca Wen, RN RN Radha Amor MD MD ma2 Socorro Martinez RN RN zb Corrections: (The following items were deleted from the chart) 08/27 17:32 17:16 08/27/2020 17:16 Discharged to Home. Impression: Acute stress reaction. Condition zb is Stable. Forms are Medication Reconciliation Form, Thank You Letter, Antibiotic Education, Prescription Opioid Use. Follow up: Emergency Department; When: As needed; Reason: Worsening of condition. Follow up: Private Physician; When: 2 - 3 days; Reason: Recheck today's complaints, Continuance of care, Re-evaluation by your physician. kb
[2020-08-27 17:39] VITALS: TEMP 98.1
[2020-08-27 17:42] VITALS: BP 167/84; O2SAT 98
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
== END 2020-08-27 17:32 | disposition home or self-care (01) ==
LOC: ER 13:21
DX: F43.0 Acute stress reaction (principal); E11.9 Type 2 diabetes mellitus without complications; Z85.038 Personal history of other malignant neoplasm of large intestine; Z85.46 Personal history of malignant neoplasm of prostate; Z91.040 Latex allergy status; Z91.048 Other nonmedicinal substance allergy status
CPT/HCPCS: 36415; 70450; 80048; 80076; 80307; 80320; 80329; 81003; 84443; 85025; 85610; 85730; 93005; 99284